=== PATIENT | male | born 1960 | race Caucasian/White ===

== ENCOUNTER 2021-02-20 11:37 | Outpatient (CLI) | payer BC, SELFPAY ==
[2021-02-20 10:34] LABS: Lithium 0.7 mmol/l (0.6-1.2)
== END 2021-02-20 11:38 | disposition home or self-care (01) ==
LOC: LBO 11:40
PROVIDERS: PCP Nurse Practitioner Family; Visit Provider Nurse Practitioner Family
DX: T43.591A Poisoning by other antipsychotics and neuroleptics, accidental (unintentional), initial encounter (principal); R25.1 Tremor, unspecified; M54.41 Lumbago with sciatica, right side; G89.29 Other chronic pain
CPT/HCPCS: 36415; 80178

== ENCOUNTER 2021-04-05 16:02 | Outpatient (REF) | payer BC, SELFPAY | END 2021-04-05 16:03 | disposition home or self-care (01) | LOC: LBN 16:02 | PROVIDERS: PCP Nurse Practitioner Family; Visit Provider Urology | DX: N40.0 Benign prostatic hyperplasia without lower urinary tract symptoms (principal) | CPT/HCPCS: 87077; 87086; 87186 ==

== ENCOUNTER 2021-08-12 13:29 | Outpatient (REF) | payer BC, SELFPAY ==
[2021-08-12 13:38] LABS: Abs Immature Grans 0.04 10^3/uL (0.0-0.06); Absolute Basophil Count 0.07 10^3/uL (0.0-0.2); Absolute Lymphocyte Count 2.49 10^3/uL (1.2-3.4); Absolute Monocyte Count 0.96 10^3/uL (0.1-0.8); Absolute Neutrophil Count 5.28 10^3/uL (1.2-6.7); Basophils % 0.8; Eosinophils % 3.3; HCT 42.1 % (40.0-50.0); Immature Grans % 0.4; Lymphocytes % 27.2; MCH 30.3 pg (27.0-33.0); MCHC 33.3 % (32.0-36.0); MCV 91.1 fL (80-95); MPV 9.2 fL (8.0-11.0); Monocytes % 10.5; Neutrophils % 57.8; Nucleated RBC 0 %; Platelet Count 319 10^3/uL (130-400); RBC 4.62 10^6/uL (4.36-5.78); RDW-SD 43.6 fL; WBC 9.14 10^3/uL (4.4-10.8)
[2021-08-12 13:44] LABS: C-Reactive Protein 0.77 mg/dL (0.0-0.3)
[2021-08-12 14:02] LABS: ALT 26 U/L (16-63); AST 12 U/L (15-37); Albumin 3.9 g/dL (3.4-5.0); Alkaline Phosphatase 74 U/L (46-116); Anion Gap 7.7 mmol/L (3-11); BUN 16 mg/dL (7-18); Bilirubin, Total 0.3 mg/dL (0.2-1.0); CO2 26.3 mmol/L (21.0-32.0); CREATININE 0.9 mg/dL (0.70-1.30); Calcium 9.1 mg/dL (8.5-10.1); Chloride 106 mmol/L (98-107); Glucose 97 mg/dL (74-106); Potassium 4.2 mmol/L (3.5-5.1); Sodium 140 mmol/L (136-145); Total Protein 7.4 g/dL (6.4-8.2)
== END 2021-08-12 13:30 | disposition home or self-care (01) ==
LOC: LBN 13:29
PROVIDERS: PCP Nurse Practitioner Family; Visit Provider Surgery
DX: K62.89 Other specified diseases of anus and rectum (principal); N40.1 Benign prostatic hyperplasia with lower urinary tract symptoms; R35.0 Frequency of micturition
CPT/HCPCS: 80053; 81401; 85025; 86140

== ENCOUNTER 2021-08-12 17:00 | Outpatient (CLI) | payer BC, SELFPAY ==
[2021-08-12] MEDS: Lactated Ringers 1,000 ML 100 ML IV (17:10)
[2021-08-12] MEDS: CIPROFLOXACIN 200 MG/100 ML BAG 100 MG IVPB (17:20)
--- NOTE | 2021-08-12 17:27 | NUR.NOTE ---
Addendum entered by Layne Mac 08/13/21 06:06: Pt was actually discharged at 1830 Addendum entered by Layne Mac 08/12/21 18:24: Pt discharged at 1824 Addendum entered by Layne Mac 08/12/21 18:21: 1820 Cipro infusion complete. Pt feels well, discharge instructions given. IV dc'd . Original Note: Nursing Note: Pt arrived in [facility] at 1700. T 36.3 BP 133/79 HR 72 R 18 SAT 96% . Pt has no c/o discomfort or nausea. Pt arrives with iv access. IV 1000cc LR hung and cipro 200mg/100ml started at 1720. Pt is resting comfortably in recliner and sipping juice.
--- NOTE | 2021-08-12 17:28 | PDOC.DSDIS_ITS ---
Discharge Plan Disposition Patient Disposition: HOME Condition: Good Discharge Details Reason For Visit: prostatitis Attending Provider: Susy Mendes Primary Care Provider: Daniel Alexander Home Meds and New Rx's Prescriptions: No Action zolmitriptan 5 mg spray,non-aerosol 1 spray intranasal Q2H PRNRF: 0 sumatriptan succinate 100 mg tablet 100 mg PO ONCE RF: 0 alfuzosin 10 mg tablet extended release 24 hr 10 mg PO DAILY RF: 0 adalimumab 40 mg/0.8 mL pen injector kit 40 mg subcut ONCE RF: 0 Emgality Syringe 300 mg/3 mL (100 mg/mL x 3) syringe 300 mg subcut ONCE RF: 0 ciprofloxacin HCl 500 mg tablet 500 mg PO BID 10 Days Qty: 20 RF: 0 propranolol 60 mg capsule,extended release 24 hr 60 mg PO QHS RF: 0 meloxicam 15 mg tablet 15 mg PO DAILY RF: 0 clindamycin-benzoyl peroxide 1-5 % gel 1 applic topical BID RF: 0 halobetasol propionate 0.05 % cream 1 applic topical BID RF: 0 simvastatin 20 mg tablet 20 mg PO DAILY Qty: 90 RF: 4 trazodone 100 mg tablet 100 mg PO QHS PRN (Reason: insomnia) Qty: 90 RF: 4 Discharge Instructions Additional Instructions: -no restrictions -do not take trazadone while taking cipro -Rx for 10 days. finish all antibiotics. yogurt daily while on antibiotics -stop using rectal suppositories. -tylenol for pain. -F/u uro at [facility] [place] If cannot reach them, f/u w/ Dr. Mendes in 2 wks time [phone] Activity:: Activity as Tolerated Diet:: As Tolerated DS: Diagnosis Discharge Diagnosis (1) Rectal pain: Status: Acute (2) Chronic prostatitis/chronic pelvic pain syndrome: Status: Acute
[2021-08-12 21:07] LABS: Bilirubin Negative (Negative); Blood Negative (Negative); Clarity Clear (Clear); Glucose Negative (Negative); Ketones Negative (Negative); Leukocyte Esterase Negative (Negative); Nitrite Negative (Negative); Urobilinogen 0.2 EU/dL (Up TO 0.2); pH 5.5 (5-8)
== END 2021-08-12 18:30 | disposition home or self-care (01) ==
PROVIDERS: PCP Nurse Practitioner Family; Visit Provider Surgery
DX: K62.89 Other specified diseases of anus and rectum (principal)
CPT/HCPCS: 96365; 81003; J0744

== ENCOUNTER 2023-04-10 02:25 | Outpatient (CLI) | payer BC, SELFPAY ==
[2023-04-10 08:15] LABS: Calculated LDL 82 mg/dL (<100); Cholesterol 140 mg/dL (<200); HDL Cholesterol 35 mg/dL (40-60); Triglyceride 119 mg/dL (<150)
== END 2023-04-10 02:26 | disposition home or self-care (01) ==
PROVIDERS: PCP Nurse Practitioner Family; Visit Provider Nurse Practitioner Family
DX: E78.5 Hyperlipidemia, unspecified (principal)
CPT/HCPCS: 36415; 80061

== ENCOUNTER → 2023-07-08 00:54 | Outpatient (CLI) | payer BC, SELFPAY ==
--- NOTE | 2023-07-08 08:45 | DI.RAD_ITS ---
Exam(s) XR ANKLE LT COMPLETE EXAM: XR ANKLE LT COMPLETE CLINICAL HISTORY: Left ankle and foot pain, m79.672,m25.572 TECHNIQUE: 2D digital imaging was performed of the left ankle. Five images were obtained. AP, late ral and oblique views were obtained. COMPARISON: No exams were available for comparison FINDINGS: BONES: No acute fracture is present. No bony destructive lesion is seen. There is a small plantar spu r. JOINTS:The ankle mortise is normally aligned. SOFT TISSUE: Normal. IMPRESSION: Small plantar calcaneal spur. DATA REPOSITORY: RADIATION DOSE DELIVERED:
== END ==
PROVIDERS: PCP Nurse Practitioner Family; Visit Provider Podiatrist
DX: M77.32 Calcaneal spur, left foot
CPT/HCPCS: 73610

== ENCOUNTER 2024-04-19 02:02 | Outpatient (CLI) | payer BC, SELFPAY ==
[2024-04-19 08:24] LABS: CREATININE 1.1 mg/dL (0.70-1.30); Calculated LDL 79 mg/dL (<100); Cholesterol 146 mg/dL (<200); Estimated GFR 75.43 (mL/min/1.73m2); HDL Cholesterol 38 mg/dL (40-60); Potassium 4.5 mmol/L (3.5-5.1); Triglyceride 148 mg/dL (<150)
[2024-04-19 08:31] LABS: Hemoglobin A1C 5.3 % (<5.7)
== END 2024-04-19 02:03 | disposition home or self-care (01) ==
PROVIDERS: PCP Nurse Practitioner Family; Visit Provider Nurse Practitioner Family
DX: I10 Essential (primary) hypertension (principal); Z13.1 Encounter for screening for diabetes mellitus; E78.5 Hyperlipidemia, unspecified
CPT/HCPCS: 36415; 80061; 82565; 83036; 84132

== ENCOUNTER 2025-04-14 00:48 | Outpatient (CLI) | payer BC, SELFPAY ==
[2025-04-14 08:19] LABS: Anion Gap 9.3 mmol/L (3-11); BUN 17 mg/dL (7-18); CO2 27.7 mmol/L (21.0-32.0); Calcium 9.1 mg/dL (8.5-10.1); Calculated LDL 66 mg/dL (<100); Chloride 105 mmol/L (98-107); Cholesterol 121 mg/dL (<200); Estimated GFR 84.57 (mL/min/1.73m2); Glucose 105 mg/dL (74-106); HDL Cholesterol 41 mg/dL (>or=40); Potassium 4.5 mmol/L (3.5-5.1); Sodium 142 mmol/L (136-145); Triglyceride 70 mg/dL (<150)
[2025-04-14 19:07] LABS: PSA, Screening 1.1 ng/mL (<=4.5)
== END 2025-04-14 00:49 | disposition home or self-care (01) ==
LOC: LBO 00:48
PROVIDERS: PCP Nurse Practitioner Family; Visit Provider Nurse Practitioner Family
DX: Z12.5 Encounter for screening for malignant neoplasm of prostate (principal); Z13.1 Encounter for screening for diabetes mellitus; Z13.6 Encounter for screening for cardiovascular disorders
CPT/HCPCS: 36415; 80048; 80061; 84153